=== PATIENT | male | born 1940 | race Caucasian/White ===

== ENCOUNTER 2016-09-05 05:11 | Inpatient (IN) | payer MEDICARE, BC ==
[2016-09-05] VITALS (21 sets, daily range): BP systolic 99–171; BP diastolic 55–99; PULSE 60–86; RESP 11–20; Ht 167.6 cm; Wt 77.7 kg
[~2016-09-05] VITALS: Ht 167.6 cm; Wt 77.7 kg
[~2016-09-05 05:11] MED LIST: ASPI325T4 PO; ATOR20TA17 PO; CLON0.2T12 PO; DICL75TA2 PO; FINA5TAB4 PO; FISH OIL OMEGA1 EACH PO; HYDR-762 PO; HYDR25TA6 PO; LANS30CA47 PO; LISI40TA9 PO; METF500T4 PO; METO-104 PO; SERT-165 PO; ZOLP5TAB PO
[2016-09-05] MEDS ORDERED: oxyCODONE (CR) 10 MG TAB [oxyCONTIN] PO ONE (05:30)
[2016-09-05] MEDS ORDERED: BUPIVACAINE 0.5% (SDV) 30 ML, morphine SULFATE (PF) 8 MG, EPINEPHrine 0.3 MG, KETOROLAC... IRR SCH ×7 (05:30)
[2016-09-05] MEDS ORDERED: DEXAMETHASONE 1 MG TAB PO ONE (05:30)
[2016-09-05] MEDS ORDERED: GABAPENTIN 300 MG CAP PO ONE (05:30)
[2016-09-05] MEDS ORDERED: traMADol 50 MG TAB PO ONE (05:30)
[2016-09-05] MEDS ORDERED: TRANEXAMIC ACID 1,000 MG in SOD CHLORIDE 0.9% 100 ML IVPB ONE (05:30)
[2016-09-05] MEDS ORDERED: CEFAZOLIN 2 GM/50 ML (PMX) 50 ML IVPB ONE (05:30)
[2016-09-05 06:21] LABS: INR 0.99; PROTIME 13.1 Sec (12.2-14.2)
[2016-09-05] MEDS ORDERED: CARI350T29 PO (06:28)
[2016-09-05] MEDS ORDERED: BUPR-75 PO (06:28)
[2016-09-05] MEDS ORDERED: SERT100T PO (06:28)
[2016-09-05] MEDS ORDERED: SITA100T8 PO (06:28)
[2016-09-05] MEDS ORDERED: THROMBIN 5000 UNIT VIAL ONE (06:29)
[2016-09-05] MEDS ORDERED: CA CHLORIDE 10% 10 ML SYRINGE ONE (06:29)
[2016-09-05] MEDS ORDERED: BUPIVACAINE 0.5%/EPI (SDV) 30 ML INJ ONE (06:29)
[2016-09-05] MEDS ORDERED: POLYMYXIN/BACITRACIN 1L IRRIG ONE (06:30)
[2016-09-05 06:45] LABS: PARTIAL THROMBOPLASTIN TIME 24.8 Sec (25.0-35.0)
[2016-09-05] MEDS ORDERED: FENTAnyl 50 MCG/ML VIAL ONE (07:03)
[2016-09-05] MEDS ORDERED: LIDOCAINE 2% (SDV) 5 ML INJ ONE (07:03)
[2016-09-05] MEDS ORDERED: SUCCINYLCHOLINE CHLORIDE 100 MG/5 ML SYG IV ONE (07:03)
[2016-09-05] MEDS ORDERED: PROPOFOL 20 ML ONE (07:03)
[2016-09-05] MEDS ORDERED: ROCURONIUM 50 MG INJ ONE (07:03)
[2016-09-05] MEDS ORDERED: MIDAZOLAM 1 MG/ML 2 ML INJ ONE (07:03)
[2016-09-05] MEDS ORDERED: ROPIVACAINE 0.5 % 30 ML VIAL ONE (07:03)
[2016-09-05] MEDS ORDERED: CEFAZOLIN 1 GM INJ ONE (07:22)
[2016-09-05] MEDS ORDERED: DEXAMETHASONE 4 MG/ML 1 ML INJ ONE (07:33)
[2016-09-05] MEDS ORDERED: ONDANSETRON 4 MG INJ ONE (07:33)
[2016-09-05] MEDS ORDERED: ACETAMINOPHEN 1000MG/100ML IV 100 ML ONE (07:34)
[2016-09-05] MEDS ORDERED: hydrALAzine 20 MG INJ ONE (07:55)
[2016-09-05] MEDS ORDERED: HYDROmorphONE 2 MG/ML SYG ONE (07:55)
[2016-09-05] MEDS ORDERED: NEOSTIGMINE 3 MG/3 ML SYRINGE ONE (08:26)
[2016-09-05] MEDS ORDERED: GLYCOPYRROLATE 0.4 MG INJ ONE (08:27)
[2016-09-05] MEDS ORDERED: MEPERIDINE 25 MG INJ IV PRN (08:30)
[2016-09-05] MEDS ORDERED: PROCHLORPERAZINE 10 MG INJ IV PRN (08:30)
[2016-09-05] MEDS ORDERED: METOCLOPRAMIDE 10 MG INJ IV PRN (08:30)
[2016-09-05] MEDS ORDERED: ONDANSETRON 4 MG INJ IV PRN ×2 (08:30→14:00)
[2016-09-05] MEDS ORDERED: LORAZEPAM 2 MG INJ IV PRN (08:30)
[2016-09-05] MEDS ORDERED: DIPHENHYDRAMINE 50 MG INJ IV PRN ×2 (08:30→14:00)
[2016-09-05] MEDS ORDERED: FENTAnyl 50 MCG/ML VIAL IV PRN (08:30)
[2016-09-05] MEDS ORDERED: HYDROmorphONE (0.2 MG/ML) 10ML SYG IV PRN ×2 (08:30)
[2016-09-05] MEDS ORDERED: hydrALAzine 20 MG INJ IV PRN (08:30)
[2016-09-05] MEDS ORDERED: LABETALOL HCL 20MG INJ IV PRN (08:30)
--- NOTE | 2016-09-05 08:56 | HPN ---
Date/Time of Note Date/Time of Note DATE: 09/05/16 TIME: 08:56 Interval H&P Admission Note Pt. seen H&P reviewed: No system changes JEFFRY MCDUFFIE MD Sep 05, 2016 08:56
[2016-09-05] MEDS ORDERED: CEFAZOLIN 1 GM/50 ML (PMX) 50 ML IVPB SCH (09:00)
[2016-09-05] MEDS ORDERED: ACETAMINOPHEN 500 MG TAB PO PRN (09:00)
[2016-09-05] MEDS ORDERED: METOPROLOL (XL) 100 MG TAB PO SCH ×2 (09:00→21:00)
[2016-09-05] MEDS ORDERED: TRANEXAMIC ACID 1,000 MG in SOD CHLORIDE 0.9% 100 ML IV ONE (09:00)
[2016-09-05] MEDS ORDERED: LISINOPRIL 20 MG TAB PO SCH ×2 (09:00→21:00)
[2016-09-05] MEDS ORDERED: MAGNESIUM HYDROXIDE 30ML CUP PO PRN (09:00)
[2016-09-05] MEDS: HYDROCHLOROTHIAZIDE 25 MG TAB PO SCH (09:00)
[2016-09-05] MEDS ORDERED: LANSOPRAZOLE 30 MG CAP PO SCH ×2 (09:00→21:00)
[2016-09-05] MEDS: SENNA/DOCUSATE NA (8.6MG/50MG) TAB PO SCH ×2 (09:00→20:52)
[2016-09-05] MEDS ORDERED: SERTRALINE 100 MG TAB PO SCH ×3 (09:00→21:00)
[2016-09-05] MEDS ORDERED: KETOROLAC 15 MG INJ IV PRN (09:00)
[2016-09-05] MEDS ORDERED: BUPROPION (XL) 150 MG TAB PO SCH ×2 (09:00→21:00)
--- NOTE | 2016-09-05 09:01 | PDOCDIS ---
Discharge Instructions DIAGNOSIS Discharge Diagnosis: Shoulder arthritis CONDITION Patient Condition: Good HOME CARE INSTRUCTIONS: Diet Instructions: Regular ACTIVITY: Activity Restrictions: Slowly Increase Activity Keep Limb Elevated Bathing Restrictions: Shower FOLLOW UP/APPOINTMENTS Appointments two weeks SCHOOL/WORK RELEASE May return to School/Work with: With Restrictions School/Work Release Comment: five pound table top usage for six weeks JEFFRY MCDUFFIE MD Sep 05, 2016 09:01
--- NOTE | 2016-09-05 09:46 | RADRPT ---
PROCEDURE: XR Shoulder. CLINICAL INDICATION: Postop. TECHNIQUE: Three views of the left shoulder are available for review. COMPARISON: None available FINDINGS: Patient is status post left total shoulder replacement. The prosthesis is in good position and ali gnment. No evidence for fracture or bone destructive change. The bones are osteopenic. IMPRESSION: 1. Good position and alignment from shoulder prosthesis. 2. No evidence for fracture. 3. Osteopenia. RPTAT: XX .Erick Iqbal MD, MD Date Time Electronically viewed and signed by .Erick Iqbal MD, MD on 09/05/2016 09:46 .T/
--- NOTE | 2016-09-05 10:38 | OPR ---
DATE OF OPERATION: 09/05/2016 SURGEON: Jeffry Peralta MD [employer]IDGE CREW MEMBER: Pascual Lei MD PREOPERATIVE DIAGNOSIS: Left shoulder primary osteoarthritis. POSTOPERATIVE DIAGNOSIS: Left shoulder primary osteoarthritis. OPERATION PERFORMED: Left total shoulder replacement. Unix Administrator Pascual Lei MD, was asked to be present at my request as a result of the significant gilman rgical complexity associated with this procedure, including positioning of the extremity, manipulati on and protection of the neurovascular structures. In my opinion, the assistance offered by a surgi ade technician helper instrument is insufficient and Dr. Lei should be compensated for his time. PROCEDURE IN DETAIL: Following administration of general endotracheal anesthesia, the patient was p laced in the beach chair position. The left upper extremity was placed and sterilely prepped and dr aped in the usual fashion. A deltopectoral incision was then used to expose the anterior aspect. T he subscapularis was detached. Severe arthritic changes were noted. The biceps tendon was also sev erely degenerative, especially down within the bicipital groove. A complete resection of the biceps tendon was then completed. Peripheral osteophytes were removed and the humeral head cut was then c ut in the proper version and inclination. The glenoid was then exposed. Peripheral osteophytes and a capsulectomy were completed. The central canal was entered, prepared for a DePuy cemented 48 mm glenoid. The actual glenoid component was then cemented into position. Attention was then directed back to the humerus. The humeral canal was then reamed up to the 10 mm size. The 10 mm component was then implanted with a 48 mm humeral head. The actual components were implanted after sterile. Solid fixation was obtained. The joint was thoroughly irrigated and good range of motion was noted with no instability. The subscapularis was then reapproximated using #2 sutures that were passed circumferentially around the humeral component. A watertight closure of th e subscapularis was then completed. The joint was irrigated once again and closed in layers with a Prineo dressing which was watertight. The patient was placed in a sling, awakened, [facility] in [facility] condition, having tolerated the procedure well. Estimated blood loss for this pro cedure was 100 mL. Postoperative x-rays will be obtained in the recovery room. Dictated By: JEFFRY GUZMAN/NTS Conf#: [id number] [facility]#: [id number]
[2016-09-05] MEDS ORDERED: morphine 2 MG INJ IV PRN (11:31)
[2016-09-05] MEDS: DEXAMETHASONE 2 MG TAB PO SCH ×2 (13:34→18:11)
[2016-09-05] MEDS ORDERED: CARISOPRODOL 350 MG TAB PO PRN (14:00)
[2016-09-05] MEDS: CEFAZOLIN 1 GM/50 ML (PMX) 50 ML IVPB SCH ×2 (15:03→22:38)
[2016-09-05] MEDS: OXYCODONE/ACETAMINOPHEN (5/325) TAB PO PRN ×2 (18:12→22:38)
[2016-09-05] MEDS ORDERED: ZOLPIDEM 5 MG TAB PO PRN (21:00)
[2016-09-05] MEDS ORDERED: GABAPENTIN 300 MG CAP PO SCH (21:00)
[2016-09-05] MEDS ORDERED: ATORVASTATIN 20 MG TAB PO SCH (21:00)
[2016-09-06] MEDS: DEXAMETHASONE 2 MG TAB PO SCH ×2 (00:11→06:02)
[2016-09-06] MEDS: morphine 4 MG/ML VIAL IV PRN ×2 (00:12→08:59)
[2016-09-06] MEDS: OXYCODONE/ACETAMINOPHEN (5/325) TAB PO PRN ×2 (02:23→06:26)
[2016-09-06] MEDS: CEFAZOLIN 1 GM/50 ML (PMX) 50 ML IVPB SCH (06:02)
--- NOTE | 2016-09-06 06:48 | PN ---
Date/Time of Note Date/Time of Note DATE: 09/06/16 TIME: 06:47 24 hour Interval Summary Patient is awake and alert with no pain. He slept well overnight. Physical exam: Wound is clean and dry. He is neurologically intact. There are no signs of DVT. Impression: Status post left total shoulder replacement Plan: He will begin physical therapy this morning he will be discharged afterwards. Follow-up in the office in 10 days. Physical Exam Vital Signs Date Time Temp Pulse Resp B/P Pulse Ox O2 Delivery O2 Flow Rate FiO2 09/05/16 23:56 98.6 77 20 111/55 98 09/05/16 21:30 Nasal Cannula 2.0 Intake and Output 09/05/16 09/05/16 09/06/16 15:00 23:00 07:00 Intake Total 1010 ml 360 ml 1050 ml Output Total 50 ml 300 ml 900 ml Balance 960 ml 60 ml 150 ml VTE Prophylaxis VTE Prophylaxis Intervention: anti-embolic stocking Lines/Catheters IV Catheter Type: Saline Lock Trevino in Place: No Results Results 24hrs Laboratory Tests Test 09/05/16 12:08 09/05/16 17:03 09/05/16 20:48 Bedside Glucose 194 192 147 Medications Medications Home Meds Reported Medications Bupropion Hcl* (Wellbutrin XL*) 150 Mg Tab.sr.24h, 150 MG PO DAILY, TAB.SA 09/05/16 Carisoprodol* (Carisoprodol*) 350 Mg Tablet, 350 MG PO Q8 Y for MUSCLE SPASMS, TAB 09/05/16 Sitagliptin* (Januvia*) 100 Mg Tablet, 100 MG PO DAILY, #30 TAB 09/05/16 Sertraline Hcl* (Zoloft*) 100 Mg Tablet, 100 MG PO DAILY, #30 TAB 09/05/16 Hydrochlorothiazide (Hydrochlorothiazide) 25 Mg Tablet, 25 MG PO DAILY 09/12/11 Metoprolol Succinate (Toprol Xl) 100 Mg Tab.sr.24h, 100 MG PO DAILY 09/12/11 Lisinopril* (Lisinopril*) 40 Mg Tablet, 40 MG PO DAILY 09/12/11 Zolpidem Tartrate* (Ambien*) 5 Mg Tablet, 5 MG PO HS 09/12/11 Hydrocodone Bit-Acetaminophen* ([place]*) 1 Tab Tablet, 1 TAB PO PRN QID 09/12/11 Aspirin* (Aspirin*) 325 Mg Tablet, 325 MG PO DAILY 09/12/11 Atorvastatin (Lipitor) 20 Mg Tablet, 20 MG PO HS 09/12/11 Clonidine Hcl* (Catapres*) 0.2 Mg Tablet, 0.2 MG PO TID 09/12/11 Lansoprazole* (Prevacid*) 30 Mg Capsule.dr, 30 MG PO DAILY 09/12/11 Sertraline Hcl* (Sertraline Hcl*) 100 Mg Tablet, 200 MG PO DAILY 09/12/11 Diclofenac Sodium* (Diclofenac Sodium*) 75 Mg Tablet.dr, 75 MG PO DAILY 09/12/11 Discontinued Reported Medications [place]-3/Dha/Epa/Fish Oil (Fish Oil [place]-3 1,360 Mg Sfgl) 1 Each Capsule, 1 EACH PO DAILY 09/12/11 Finasteride* (Finasteride*) 5 Mg Tablet, 5 MG PO DAILY 09/12/11 Metformin* (Glucophage*) 500 Mg Tab, 500 MG PO BID 09/12/11 JEFFRY MCDUFFIE MD Sep 06, 2016 06:48
--- NOTE | 2016-09-06 06:50 | DS ---
Date/Time of Note Date/Time of Note DATE: 09/06/16 TIME: 06:49 Discharge Summary Admission/Discharge Info Admit Date/Time Sep 05, 2016 at 05:11 Discharge Date/Time September 06, 2016 following occupational therapy. Final Diagnosis Left shoulder osteoarthritis Patient Condition: Good Procedures Left total shoulder replacement Hx of Present Illness Severe pain and stiffness in the left shoulder for several years. Hospital Course Patient was admitted and underwent an uncomplicated left total shoulder replacement. Overnight he was comfortable. He is to be discharged following therapy follow-up in the office in 10 days. Home Meds Reported Medications Bupropion Hcl* (Wellbutrin XL*) 150 Mg Tab.sr.24h, 150 MG PO DAILY, TAB.SA 09/05/16 Carisoprodol* (Carisoprodol*) 350 Mg Tablet, 350 MG PO Q8 Y for MUSCLE SPASMS, TAB 09/05/16 Sitagliptin* (Januvia*) 100 Mg Tablet, 100 MG PO DAILY, #30 TAB 09/05/16 Sertraline Hcl* (Zoloft*) 100 Mg Tablet, 100 MG PO DAILY, #30 TAB 09/05/16 Hydrochlorothiazide (Hydrochlorothiazide) 25 Mg Tablet, 25 MG PO DAILY 09/12/11 Metoprolol Succinate (Toprol Xl) 100 Mg Tab.sr.24h, 100 MG PO DAILY 09/12/11 Lisinopril* (Lisinopril*) 40 Mg Tablet, 40 MG PO DAILY 09/12/11 Zolpidem Tartrate* (Ambien*) 5 Mg Tablet, 5 MG PO HS 09/12/11 Hydrocodone Bit-Acetaminophen* ([place]*) 1 Tab Tablet, 1 TAB PO PRN QID 09/12/11 Aspirin* (Aspirin*) 325 Mg Tablet, 325 MG PO DAILY 09/12/11 Atorvastatin (Lipitor) 20 Mg Tablet, 20 MG PO HS 09/12/11 Clonidine Hcl* (Catapres*) 0.2 Mg Tablet, 0.2 MG PO TID 09/12/11 Lansoprazole* (Prevacid*) 30 Mg Capsule.dr, 30 MG PO DAILY 09/12/11 Sertraline Hcl* (Sertraline Hcl*) 100 Mg Tablet, 200 MG PO DAILY 09/12/11 Diclofenac Sodium* (Diclofenac Sodium*) 75 Mg Tablet.dr, 75 MG PO DAILY 09/12/11 Discontinued Reported Medications [place]-3/Dha/Epa/Fish Oil (Fish Oil [place]-3 1,360 Mg Sfgl) 1 Each Capsule, 1 EACH PO DAILY 09/12/11 Finasteride* (Finasteride*) 5 Mg Tablet, 5 MG PO DAILY 09/12/11 Metformin* (Glucophage*) 500 Mg Tab, 500 MG PO BID 09/12/11 Pending Labs Laboratory Tests Test 09/05/16 12:08 09/05/16 17:03 09/05/16 20:48 Bedside Glucose 194mg/dL (70-220) 192mg/dL (70-220) 147mg/dL (70-220) JEFFRY MCDUFFIE MD Sep 06, 2016 06:50
[2016-09-06 06:53] VITALS: BP 140/72; PULSE 82; RESP 18
[2016-09-06 07:00] VITALS: BP 122/59; RESP 20
[2016-09-06] MEDS: HYDROCHLOROTHIAZIDE 25 MG TAB PO SCH (08:54)
[2016-09-06] MEDS: SENNA/DOCUSATE NA (8.6MG/50MG) TAB PO SCH (08:54)
[2016-09-06] MEDS ORDERED: ASPIRIN 81 MG TAB PO SCH (09:00)
[2016-09-06] MEDS ORDERED: SERTRALINE 100 MG TAB PO SCH (09:00)
[2016-09-06 09:40] VITALS: BP 124/61; RESP 18
== END 2016-09-06 10:20 | disposition home or self-care (01) | DRG 483 ==
LOC: REC 05:11 → MS1 10:16
PROVIDERS: ADMIT Orthopaedic Surgery; ATTEND Orthopaedic Surgery
PROC: 0RRK0JZ Replacement of Left Shoulder Joint with Synthetic Substitute, Open Approach (ICD-10-PCS; principal; 2016-09-05 07:00)
DX: M19.012 Primary osteoarthritis, left shoulder (principal); E11.22 Type 2 diabetes mellitus with diabetic chronic kidney disease; N18.3 Chronic kidney disease, stage 3 (moderate); I12.9 Hypertensive chronic kidney disease with stage 1 through stage 4 chronic kidney disease, or unspecified chronic kidney disease; N40.0 Benign prostatic hyperplasia without lower urinary tract symptoms; E78.5 Hyperlipidemia, unspecified; F32.9 Major depressive disorder, single episode, unspecified; K21.9 Gastro-esophageal reflux disease without esophagitis
CPT/HCPCS: 73030; 82962; 85610; 85730; 86999; 88304; 88311; 97162; 97166; Z7610; C1776; J0131; J0171; J0330; J0360; J0690; J0735; J1100; J1170; J1885; J2250; J2270; J2274; J2405; J2710; J2795; J3010; J3370

== ENCOUNTER 2017-04-16 10:21 | Inpatient (IN) | payer MEDICARE, BC ==
[2017-04-15 16:56] VITALS: BMI 27.5
[~2017-04-16] VITALS: Ht 167.6 cm; Wt 75.0 kg
[2017-04-16] VITALS (18 sets, daily range): BP systolic 121–155; BP diastolic 59–103; PULSE 66–93; RESP 15–23; Ht 167.6 cm; Wt 75.0 kg
[~2017-04-16 10:21] MED LIST changes: +BUPIVACAINE 0.5% (SDV) 30 ML, morphine SULFATE (PF) 8 MG, EPINEPHrine 0.3 MG, KETOROLAC... IRR SCH; +BUPR-75 PO; +CARI350T29 PO; +CEFAZOLIN 2 GM/50 ML (PMX) 50 ML IVPB SCH; +DEXAMETHASONE 1 MG TAB PO SCH; -FINA5TAB4 PO; -FISH OIL OMEGA1 EACH PO; +GABAPENTIN 300 MG CAP PO SCH; -METF500T4 PO; +SERT100T PO; +SITA100T8 PO; +TRANEXAMIC ACID 1,000 MG in SOD CHLORIDE 0.9% 100 ML IVPB SCH; +traMADol 50 MG TAB PO SCH
[2017-04-16] MEDS ORDERED: LISI20TA11 PO (11:36)
[2017-04-16] MEDS ORDERED: DOXY100T20 PO (11:49)
[2017-04-16] MEDS ORDERED: HYDR25TA6 PO (11:51)
[2017-04-16] MEDS ORDERED: AZEL6DRO2 BOTH EYES (11:51)
[2017-04-16] MEDS ORDERED: CYCL1DRO BOTH EYES (11:52)
[2017-04-16] MEDS ORDERED: CARB15DR BOTH EYES (11:53)
[2017-04-16] MEDS ORDERED: RANI300T PO (11:54)
[2017-04-16] MEDS ORDERED: ONDANSETRON 4 MG INJ ONE (12:22)
[2017-04-16] MEDS ORDERED: MIDAZOLAM 1 MG/ML 2 ML INJ ONE (12:22)
[2017-04-16] MEDS ORDERED: ROCURONIUM 50 MG INJ ONE (12:22)
[2017-04-16] MEDS ORDERED: DEXAMETHASONE 4 MG/ML 1 ML INJ ONE (12:22)
[2017-04-16] MEDS ORDERED: PROPOFOL 20 ML ONE (12:22)
[2017-04-16] MEDS ORDERED: NEOSTIGMINE 3 MG/3 ML SYRINGE ONE (12:22)
[2017-04-16] MEDS ORDERED: FENTAnyl 50 MCG/ML VIAL ONE (12:22)
[2017-04-16] MEDS ORDERED: CEFAZOLIN 1 GM INJ ONE (12:22)
[2017-04-16] MEDS ORDERED: BUPIVACAINE 0.5%/EPI (SDV) 30 ML INJ ONE (12:25)
[2017-04-16] MEDS ORDERED: THROMBIN 5000 UNIT VIAL ONE (12:25)
[2017-04-16] MEDS ORDERED: CA CHLORIDE 10% 10 ML SYRINGE ONE (12:25)
[2017-04-16] MEDS ORDERED: ROPIVACAINE 0.5 % 30 ML VIAL ONE (12:25)
[2017-04-16] MEDS ORDERED: POLYMYXIN/BACITRACIN 1L IRRIG ONE (12:25)
--- NOTE | 2017-04-16 12:47 | HPN ---
Date/Time of Note Date/Time of Note DATE: 04/16/17 TIME: 12:47 Interval H&P Admission Note Pt. seen H&P reviewed: No system changes JEFFRY MCDUFFIE MD Apr 16, 2017 12:47
[2017-04-16] MEDS ORDERED: hydrALAzine 20 MG INJ ONE (13:37)
[2017-04-16] MEDS ORDERED: ONDANSETRON 4 MG INJ IV PRN (14:30)
[2017-04-16] MEDS ORDERED: MIDAZOLAM 1 MG/ML 2 ML INJ IV PRN (14:30)
[2017-04-16] MEDS ORDERED: TRANEXAMIC ACID 1,000 MG in SOD CHLORIDE 0.9% 100 ML IVPB SCH (14:30)
[2017-04-16] MEDS ORDERED: ALBUTEROL 0.083% (NEB) 2.5 MG/3 ML AMP HHN PRN (14:30)
[2017-04-16] MEDS ORDERED: FENTAnyl 50 MCG/ML VIAL IV PRN ×3 (14:30)
[2017-04-16] MEDS ORDERED: OXYCODONE/ACETAMINOPHEN (5/325) TAB PO PRN ×2 (14:30)
[2017-04-16] MEDS ORDERED: TRIMETHOBENZAMIDE 100 MG/ML VIAL IM PRN (14:30)
[2017-04-16] MEDS ORDERED: hydrALAzine 20 MG INJ IV PRN (14:30)
[2017-04-16] MEDS ORDERED: IPRATROPIUM (NEB) 0.5 MG/2.5 ML AMP HHN PRN (14:30)
[2017-04-16] MEDS ORDERED: HYDROmorphONE (0.2 MG/ML) 10ML SYG IV PRN ×3 (14:30)
[2017-04-16] MEDS ORDERED: MEPERIDINE 25 MG INJ IV PRN (14:30)
[2017-04-16] MEDS ORDERED: LABETALOL HCL 20MG INJ IV PRN (14:30)
[2017-04-16] MEDS ORDERED: DIPHENHYDRAMINE 50 MG INJ IV PRN ×2 (14:30→15:00)
[2017-04-16] MEDS ORDERED: EPHEDrine SULFATE 50 MG/5 ML SYG IV PRN (14:30)
--- NOTE | 2017-04-16 14:38 | OPR ---
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 Assistance was necessary as a result of the highly technical nature of this operation. When performing an open total shoulder replacement, it is critical to have a trained assistant at surgery who is an expert in handling the extremity and assisting the surgeon in tasks such as manipulation of the arm, protection of the neurovascular structures and positioning the implants. This assistance cannot be performed by a smog technician, as it is considered an integral part of the procedure and the assistant at surgery should be compensated for their time. PROCEDURE IN DETAIL: Following the administration of general anesthesia supplemented with a peripheral nerve block for postoperative pain control, the patient was examined under anesthesia. Examination revealed that he had a posterior superior dislocation. An attempt was made at a passive reduction. The arm was locked in internal rotation and the decision was then made to await an open reduction of the components. The patient was then placed in the beach chair position. Sterile prep and drape was then undertaken. An extended deltopectoral incision was then carried through the interval exposing the conjoined tendon and retracting it medially. The subscapularis was noted to be partially disrupted superiorly. The humeral component was then noted to be posteriorly dislocated and locked behind the glenoid component which was partially elevated. The superior rotator cuff was then noted to be also torn and retracted. The remnants posteriorly of the infraspinatus were left in place. The humeral component was then reduced by first removing the glenoid component. The glenoid bone itself was intact. The cement was curetted from around the peripheral holes. Good stable base of the glenoid was noted. Attention was then directed to the humeral component the humeral component head was removed and the metaphyseal component was then subsequently removed by review removing the central screw. The humerus was retracted and the glenoid was exposed. Peripheral osteophytes were removed and a complete capsulectomy performed. The central canal of the glenoid was then entered and prepared for a standard Depuy baseplate. A standard Depuy baseplate was then applied with four peripheral screws and solid fixation. A 38 mm glenosphere was then applied, with solid fixation. The humerus was then r for a standard metaphyseal component. The actual components were implanted with solid fixation. A 6 mm liner was seen to be the best fit. The arm was taken through full range of motion with no evident instability. The joint was then thoroughly irrigated, the deep tissues were approximated using #1 suture followed by closure of the deep layer using 2-0 Monocryl. The skin was closed using 4-0 Monocryl suture, and a Prenio dressing. An Ultrasling was then applied. The patient was awakened and transported to the recovery room in stable condition. Estimated blood loss for this procedure was 75 cc. Radiographs will be obtained in the recovery room. JEFFRY MCDUFFIE MD Apr 16, 2017 14:38
--- NOTE | 2017-04-16 14:38 | PDOCDIS ---
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 JEFFRY MCDUFFIE MD Apr 16, 2017 14:38
[2017-04-16] MEDS: CEFAZOLIN 1 GM/50 ML (PMX) 50 ML IVPB SCH ×2 (15:00→22:32)
[2017-04-16] MEDS ORDERED: ZOLPIDEM 5 MG TAB PO PRN (15:00)
[2017-04-16] MEDS ORDERED: KETOROLAC 15 MG INJ IV PRN (15:00)
[2017-04-16] MEDS ORDERED: MAGNESIUM HYDROXIDE 30ML CUP PO PRN (15:00)
[2017-04-16] MEDS ORDERED: TRANEXAMIC ACID 1,000 MG in SOD CHLORIDE 0.9% 100 ML IV ONE (15:00)
[2017-04-16] MEDS ORDERED: morphine 4 MG/ML VIAL IV PRN (15:00)
[2017-04-16] MEDS ORDERED: ACETAMINOPHEN 500 MG TAB PO PRN (15:00)
[2017-04-16] MEDS ORDERED: morphine 2 MG INJ IV PRN (15:00)
[2017-04-16] MEDS: CARBOXYMETHYLCELLULOSE 0.5% 0.1 ML OPH BOTH EYES SCH ×2 (16:53→20:44)
--- NOTE | 2017-04-16 16:58 | RADRPT ---
PROCEDURE: XR left shoulder. CLINICAL INDICATION: Postop left shoulder replacement. TECHNIQUE: AP, Internal and external rotation views of the left shoulder were performed. COMPARISON: 09/05/2016 left shoulder x-ray. FINDINGS: Intact left total shoulder prosthesis with anatomic alignment of glenoid and humeral components. No fracture or dislocation. Thoracic structures are unremarkable. No soft tissue or other osseous abnormality.. IMPRESSION: 1. Intact left total shoulder prosthesis with anatomic alignment. No fracture or dislocation. RPTAT: HH Physician Rebecca Date Time Electronically viewed and signed by Physician Rebecca on 04/16/2017 16:57 AURELIA/
[2017-04-16] MEDS: DEXAMETHASONE 2 MG TAB PO SCH (17:27)
[2017-04-16] MEDS ORDERED: WARFARIN 5 MG TAB PO ONE (19:00)
[2017-04-16] MEDS: OXYCODONE/ACETAMINOPHEN (5/325) TAB PO PRN (19:44)
[2017-04-16] MEDS: SENNA/DOCUSATE NA (8.6MG/50MG) TAB PO SCH (20:38)
[2017-04-16] MEDS: AZELASTINE 0.05% 6 ML OPH BOTH EYES SCH (20:39)
[2017-04-16] MEDS: CYCLOSPORINE 0.05% OPH DROPERETTE BOTH EYES SCH (20:39)
[2017-04-16] MEDS ORDERED: GABAPENTIN 300 MG CAP PO SCH (21:00)
[2017-04-16] MEDS ORDERED: RANITIDINE 150 MG TAB PO SCH (21:00)
[2017-04-16] MEDS ORDERED: ATORVASTATIN 20 MG TAB PO SCH (21:00)
[2017-04-17] VITALS (8 sets, daily range): BP systolic 129–200; BP diastolic 60–99; PULSE 74–79; RESP 18–20
[2017-04-17] MEDS: DEXAMETHASONE 2 MG TAB PO SCH ×3 (00:15→13:25)
[2017-04-17] MEDS: OXYCODONE/ACETAMINOPHEN (5/325) TAB PO PRN ×3 (00:16→09:09)
[2017-04-17] MEDS: ONDANSETRON 4 MG INJ IV PRN ×2 (03:41→08:55)
[2017-04-17] MEDS ORDERED: LANSOPRAZOLE 30 MG CAP PO SCH (06:00)
[2017-04-17] MEDS: CEFAZOLIN 1 GM/50 ML (PMX) 50 ML IVPB SCH (06:07)
[2017-04-17] MEDS ORDERED: ASPIRIN 81 MG TAB PO SCH (09:00)
[2017-04-17] MEDS ORDERED: LISINOPRIL 20 MG TAB PO SCH (09:00)
[2017-04-17] MEDS ORDERED: METOPROLOL (XL) 100 MG TAB PO SCH (09:00)
[2017-04-17] MEDS ORDERED: LINAGLIPTIN 5 MG TABLET PO SCH (09:00)
[2017-04-17] MEDS ORDERED: BUPROPION (XL) 150 MG TAB PO SCH (09:00)
[2017-04-17] MEDS ORDERED: SERTRALINE 100 MG TAB PO SCH (09:00)
[2017-04-17] MEDS ORDERED: HYDROCHLOROTHIAZIDE 25 MG TAB PO SCH (09:00)
[2017-04-17] MEDS: CARBOXYMETHYLCELLULOSE 0.5% 0.1 ML OPH BOTH EYES SCH ×2 (09:00→13:00)
[2017-04-17] MEDS: AZELASTINE 0.05% 6 ML OPH BOTH EYES SCH (09:00)
--- NOTE | 2017-04-17 09:03 | PN ---
Date/Time of Note Date/Time of Note DATE: 04/17/17 TIME: 09:02 24 hour Interval Summary Patient is awake and alert. There is some nausea this morning. Physical Exam Physical examination: His wound is clean and dry. He is neurologically intact. There are no signs of DVT. Vital Signs Date Time Temp Pulse Resp B/P Pulse Ox O2 Delivery O2 Flow Rate FiO2 04/17/17 00:00 98.6 69 20 130/60 97 04/16/17 20:00 Nasal Cannula 2.0 Intake and Output 04/16/17 04/16/17 04/17/17 15:00 23:00 07:00 Intake Total 1500 ml 720 ml 590 ml Output Total 50 ml 450 ml 750 ml Balance 1450 ml 270 ml -160 ml VTE Prophylaxis VTE Prophylaxis Intervention: anti-embolic stocking Lines/Catheters IV Catheter Type: Saline Lock Trevino in Place: No Results Results 24hrs Laboratory Tests Test 04/16/17 11:47 Bedside Glucose 146 Assessment/Plan Assessment/Plan Assessment: Status post reverse total shoulder Plan: He will begin therapy this morning. Discharged after that. Medications Medications Home Meds Reported Medications Ranitidine Hcl* (Ranitidine Hcl*) 300 Mg Tablet, 300 MG PO HS, #30 TAB 04/16/17 Carboxymethylcellulose Sodium* (Refresh Tears*) 15 Ml Drops, 2 DROP BOTH EYES QID, #1 EA 04/16/17 Cyclosporine (RESTASIS) 1 Each Droperette, 1 DROP BOTH EYES Q12, #1 BOX 04/16/17 Azelastine Hcl* (Azelastine Hcl*) 0.05%-6 Ml Opht Drops, 1 DROP BOTH EYES BID, # 1 EA 04/16/17 Hydrochlorothiazide* (Hydrochlorothiazide*) 25 Mg Tab, 25 MG PO DAILY, #30 TAB 04/16/17 Doxycycline Hyclate* (Doxycycline Hyclate*) 100 Mg Tablet.dr, 100 MG PO BID, TAB STARTED 04-14-17 FOR 5 DAYS 04/16/17 Lisinopril* (Lisinopril*) 20 Mg Tablet, 20 MG PO DAILY, #30 TAB 04/16/17 Bupropion Hcl* (Wellbutrin XL*) 150 Mg Tab.sr.24h, 150 MG PO DAILY, TAB.SA 09/05/16 Sitagliptin* (Januvia*) 100 Mg Tablet, 100 MG PO DAILY, #30 TAB 09/05/16 Sertraline Hcl* (Zoloft*) 100 Mg Tablet, 100 MG PO DAILY, #30 TAB 09/05/16 Metoprolol Succinate (Toprol Xl) 100 Mg Tab.sr.24h, 100 MG PO DAILY 09/12/11 Zolpidem Tartrate* (Ambien*) 5 Mg Tablet, 5 MG PO HS 09/12/11 Hydrocodone Bit-Acetaminophen* ([place]*) 1 Tab Tablet, 1 TAB PO PRN QID 09/12/11 Aspirin* (Aspirin*) 325 Mg Tablet, 325 MG PO DAILY 09/12/11 Atorvastatin (Lipitor) 20 Mg Tablet, 20 MG PO HS 09/12/11 Clonidine Hcl* (Catapres*) 0.2 Mg Tablet, 0.2 MG PO TID 09/12/11 Lansoprazole* (Prevacid*) 30 Mg Capsule.dr, 30 MG PO DAILY 09/12/11 Diclofenac Sodium* (Diclofenac Sodium*) 75 Mg Tablet.dr, 75 MG PO DAILY 09/12/11 Discontinued Reported Medications Carisoprodol* (Carisoprodol*) 350 Mg Tablet, 350 MG PO Q8 Y for MUSCLE SPASMS, TAB 09/05/16 Hydrochlorothiazide (Hydrochlorothiazide) 25 Mg Tablet, 25 MG PO DAILY 09/12/11 Lisinopril* (Lisinopril*) 40 Mg Tablet, 40 MG PO DAILY 09/12/11 Sertraline Hcl* (Sertraline Hcl*) 100 Mg Tablet, 200 MG PO DAILY 09/12/11 JEFFRY MCDUFFIE MD Apr 17, 2017 09:03
--- NOTE | 2017-04-17 09:04 | DS ---
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 Postop day #1 he was afebrile stable and discharged home Home Meds Reported Medications Ranitidine Hcl* (Ranitidine Hcl*) 300 Mg Tablet, 300 MG PO HS, #30 TAB 04/16/17 Carboxymethylcellulose Sodium* (Refresh Tears*) 15 Ml Drops, 2 DROP BOTH EYES QID, #1 EA 04/16/17 Cyclosporine (RESTASIS) 1 Each Droperette, 1 DROP BOTH EYES Q12, #1 BOX 04/16/17 Azelastine Hcl* (Azelastine Hcl*) 0.05%-6 Ml Opht Drops, 1 DROP BOTH EYES BID, # 1 EA 04/16/17 Hydrochlorothiazide* (Hydrochlorothiazide*) 25 Mg Tab, 25 MG PO DAILY, #30 TAB 04/16/17 Doxycycline Hyclate* (Doxycycline Hyclate*) 100 Mg Tablet.dr, 100 MG PO BID, TAB STARTED 04-14- FOR 5 DAYS 04/16/17 Lisinopril* (Lisinopril*) 20 Mg Tablet, 20 MG PO DAILY, #30 TAB 04/16/17 Bupropion Hcl* (Wellbutrin XL*) 150 Mg Tab.sr.24h, 150 MG PO DAILY, TAB.SA 09/05/16 Sitagliptin* (Januvia*) 100 Mg Tablet, 100 MG PO DAILY, #30 TAB 09/05/16 Sertraline Hcl* (Zoloft*) 100 Mg Tablet, 100 MG PO DAILY, #30 TAB 09/05/16 Metoprolol Succinate (Toprol Xl) 100 Mg Tab.sr.24h, 100 MG PO DAILY 09/12/11 Zolpidem Tartrate* (Ambien*) 5 Mg Tablet, 5 MG PO HS 09/12/11 Hydrocodone Bit-Acetaminophen* ([place]*) 1 Tab Tablet, 1 TAB PO PRN QID 09/12/11 Aspirin* (Aspirin*) 325 Mg Tablet, 325 MG PO DAILY 09/12/11 Atorvastatin (Lipitor) 20 Mg Tablet, 20 MG PO HS 09/12/11 Clonidine Hcl* (Catapres*) 0.2 Mg Tablet, 0.2 MG PO TID 09/12/11 Lansoprazole* (Prevacid*) 30 Mg Capsule.dr, 30 MG PO DAILY 09/12/11 Diclofenac Sodium* (Diclofenac Sodium*) 75 Mg Tablet.dr, 75 MG PO DAILY 09/12/11 Discontinued Reported Medications Carisoprodol* (Carisoprodol*) 350 Mg Tablet, 350 MG PO Q8 Y for MUSCLE SPASMS, TAB 09/05/16 Hydrochlorothiazide (Hydrochlorothiazide) 25 Mg Tablet, 25 MG PO DAILY 09/12/11 Lisinopril* (Lisinopril*) 40 Mg Tablet, 40 MG PO DAILY 09/12/11 Sertraline Hcl* (Sertraline Hcl*) 100 Mg Tablet, 200 MG PO DAILY 09/12/11 Follow-up Plan 2 weeks postoperatively at the office Primary Care Provider Not On Staff Doctor Pending Labs Laboratory Tests Test 04/16/17 11:47 Bedside Glucose 146mg/dL (70-220) JEFFRY MCDUFFIE MD Apr 17, 2017 09:04
[2017-04-17] MEDS: SENNA/DOCUSATE NA (8.6MG/50MG) TAB PO SCH (10:02)
[2017-04-17] MEDS: CYCLOSPORINE 0.05% OPH DROPERETTE BOTH EYES SCH (10:03)
[2017-04-17] MEDS ORDERED: METOPROLOL (XL) 100 MG TAB PO ONE (12:30)
== END 2017-04-17 14:00 | disposition home or self-care (01) | DRG 483 ==
LOC: REC 10:21 → MS1 14:40
PROVIDERS: ADMIT Orthopaedic Surgery; ATTEND Orthopaedic Surgery
PROC: 0RPK0JZ Removal of Synthetic Substitute from Left Shoulder Joint, Open Approach (ICD-10-PCS; 2017-04-16)
PROC: 0RRK0JZ Replacement of Left Shoulder Joint with Synthetic Substitute, Open Approach (ICD-10-PCS; principal; 2017-04-16 13:00)
DX: T84.028A Dislocation of other internal joint prosthesis, initial encounter (principal); E11.22 Type 2 diabetes mellitus with diabetic chronic kidney disease; N18.3 Chronic kidney disease, stage 3 (moderate); Z96.612 Presence of left artificial shoulder joint; I12.9 Hypertensive chronic kidney disease with stage 1 through stage 4 chronic kidney disease, or unspecified chronic kidney disease; N40.0 Benign prostatic hyperplasia without lower urinary tract symptoms; F32.9 Major depressive disorder, single episode, unspecified; Y83.8 Other surgical procedures as the cause of abnormal reaction of the patient, or of later complication, without mention of misadventure at the time of the procedure; W01.0XXA Fall on same level from slipping, tripping and stumbling without subsequent striking against object, initial encounter; Y93.89 Activity, other specified; Y99.8 Other external cause status; Z79.84 Long term (current) use of oral hypoglycemic drugs; Y92.019 Unspecified place in single-family (private) house as the place of occurrence of the external cause
CPT/HCPCS: 73030; 82962; 86999; 88300; 97110; 97167; J0360; J0690; J1100; J1170; J1885; J2250; J2270; J2405; J2710; J2795; J3010